=== PATIENT | female | born 1995 | race Caucasian/White ===

== ENCOUNTER 2024-06-06 07:27 | Outpatient (CLI) | payer OTHER ==
[2024-06-06 12:20] LABS: ESTIMATED AVERAGE GLUCOSE 108 mg/dL (70-100); HEMOGLOBIN A1c% 5.4 % (4.27-6.07)
[2024-06-06 12:23] LABS: ALBUMIN 4.2 g/dL (3.2-5.5); ALBUMIN/GLOBULIN RATIO 1.2 (1.0-2.2); BILIRUBIN,TOTAL 0.3 mg/dL (0.2-1.0); CALCIUM 9.4 mg/dL (8.5-10.3); CREATININE 0.7 mg/dL (0.6-1.3); POTASSIUM 3.8 mmol/L (3.5-4.5); TOTAL PROTEIN 7.7 g/dL (6.4-8.9)
[2024-06-06 12:33] LABS: THYROID STIMULATING HORMONE 1.47 uIU/mL (0.34-5.60)
[2024-06-06 12:35] LABS: PROLACTIN 11.93 ng/mL
[2024-06-09 05:13] LABS: ENDOMYSIAL IGA Negative (Negative)
[2024-06-09 16:08] LABS: T-TRANSGLUTAMINASE (TTG) IGA <2 U/mL (0-3); T-TRANSGLUTAMINASE (TTG) IGG 4 U/mL (0-5)
== END 2024-06-06 07:28 | disposition home or self-care (01) ==
LOC: LAB.N 07:27
PROVIDERS: ATTEND Family Medicine
DX: R73.03 Prediabetes (principal); E66.9 Obesity, unspecified; N92.6 Irregular menstruation, unspecified; R10.9 Unspecified abdominal pain
CPT/HCPCS: 36415; 80053; 83036; 84146; 84403; 84443; 86231; 86364